=== PATIENT | male | born 1990 | race Asian ===

== ENCOUNTER 2017-01-11 12:52 | Emergency (ER) | payer OTHER ==
[~2017-01-11] VITALS: Ht 180.3 cm; Wt 99.8 kg
[2017-01-11 12:58] VITALS: BP 127/77
== END 2017-01-11 13:20 | disposition home or self-care (01) ==
LOC: ED 12:52
DX: T23.071A Burn of unspecified degree of right wrist, initial encounter (principal); T22.012A Burn of unspecified degree of left forearm, initial encounter; J45.909 Unspecified asthma, uncomplicated; V49.40XA Driver injured in collision with unspecified motor vehicles in traffic accident, initial encounter; Y93.89 Activity, other specified; Y99.8 Other external cause status; Y92.89 Other specified places as the place of occurrence of the external cause
CPT/HCPCS: 90715